=== PATIENT | female | born 1990 | race Caucasian/White ===

== ENCOUNTER 2021-07-04 00:18 | Emergency (ER) | payer BC, OTHER ==
[~2021-07-04] VITALS: Ht 165.1 cm; Wt 108.9 kg
[2021-07-04 00:20] VITALS: BP 150/103
[2021-07-04] MEDS ORDERED: SODIUM CHLORIDE 0.9% 1,000 ML IV ONE (01:15)
[2021-07-04] MEDS ORDERED: ALPRAZolam 0.5 MG TAB PO ONE (01:15)
[2021-07-04 02:22] LABS: Basophils # (auto) 0.1 10 ^3/uL (0-0.2); Basophils % (auto) 0.6 % (0.0-2.0); Eosinophils # (auto) 0.3 10 ^3/uL (0-0.8); Eosinophils % (auto) 2.2 % (0.0-7.0); Hematocrit 46.2 % (36.0-46.0); Hemoglobin 15.6 g/dL (12.2-16.2); Lymphocytes # (auto) 2.9 10 ^3/uL (0.4-5.4); Lymphocytes % (auto) 23.9 % (10.0-50.0); Mean Corpuscular Hemoglobin 33.8 pg (28.0-32.0); Mean Corpuscular Hgb Conc. 33.8 g/dL (32.0-36.0); Mean Corpuscular Volume 100.1 fL (80.0-100.0); Monocytes # (auto) 0.8 10 ^3/uL (0-1.3); Monocytes % (auto) 6.8 % (0.0-12.0); Neutrophils % (auto) 66.5 % (37.0-80.0); Red Blood Cells 4.62 10^6/uL (4.0-5.20); Red Cell Distribution Width 12.8 % (11.8-14.3); White Blood Cell 12.1 10^3/uL (4.4-10.8)
[2021-07-04 02:42] LABS: Albumin 4.1 g/dL (3.4-5.0); BUN/Creatinine Ratio 9.8; Calcium 9.7 mg/dL (8.5-10.1); Magnesium 2.4 mg/dL (1.6-2.6); Potassium 3.7 mmol/L (3.5-5.1)
[2021-07-04 02:47] LABS: Bilirubin, Total 0.5 mg/dL (0.2-1.0); Total Protein 9.1 g/dL (6.4-8.2)
== END 2021-07-04 03:24 | disposition left against medical advice (07) ==
LOC: ER 00:18
DX: R00.2 Palpitations (principal); R42 Dizziness and giddiness; M54.2 Cervicalgia
CPT/HCPCS: 36415; 80053; 83735; 84443; 84484; 85025; 85379; 93005